=== PATIENT | male | born 2000 ===

== ENCOUNTER → 2023-11-01 16:41 | Outpatient (CLI) | payer OTHER, SELFPAY ==
--- NOTE | 2023-11-01 17:54 | DI.MRI.S_ITS ---
PROCEDURE: MR LUMBAR SPINE WO CON INDICATIONS: Low back pain TECHNIQUE: Noncontrast sagittal T1 spin echo and T2 fast echo, sagittal STIR, and T2 fast spin echo through the lumbar spine. In cases with scoliosis, additional coronal T2 fast spin echo may be performed. COMPARISON: None. FINDINGS: Image quality: Excellent. Alignment and Curvature: There is normal bony alignment. Bone Marrow: Marrow is of normal overall signal. No acute vertebral body compression fractures. Spinal Cord: Conus medullaris terminates at the L1 level. Visualized cord demonstrates normal signal and size. Paraspinous Soft Tissues: No paravertebral masses. T12-L1: Normal appearance. L1-L2: Normal appearance. L2-L3: Normal appearance. L3-L4: Normal appearance. L4-L5: Disc space narrowing and posterior disc bulge asymmetric to the left shows high-intensity zone in the posterior annulus reflecting annular fissure or tear. Effacement of the left lateral recess. Mild central stenosis. Renal stenosis L5-S1: Normal appearance. IMPRESSION: Degenerative disc disease at L4-5 results in asymmetric left disc bulge and face in the left lateral recess with only mild central stenosis. Approved by: Ryan Ospina M.D. on 11/02/2023 at 18:19
== END ==
PROVIDERS: Referring Provider Student in an Organized Health Care Education/Training Program; Visit Provider Student in an Organized Health Care Education/Training Program
DX: M51.36 Other intervertebral disc degeneration, lumbar region (principal); M48.061 Spinal stenosis, lumbar region without neurogenic claudication; M54.50 Low back pain, unspecified
CPT/HCPCS: 72148